=== PATIENT | male | born 1980 | race Caucasian/White ===

== ENCOUNTER → 2018-03-06 | Outpatient (CLI) | payer OTHER ==
--- NOTE | 2018-03-06 19:15 | RADIOLOGY IMAGING REPORT ---
FACILITY: [facility] [place] PATIENT NAME: Thony Jimenez : 1980 MR: [id number] V: [id number] EXAM DATE: ORDERING PHYSICIAN: JAVIER LITTLEJOHN TECHNOLOGIST: Location: [facility] - [place], [place] Patient: Thony Jimenez : 1980 Visit/Account:[id number] Date of Sevice: 03/06/2018 ABD SINGLE ORGAN/QUAD/FOLLOWUP INDICATION: Right groin pain. Lump in the groin. COMPARISON: None available FINDINGS: Ultrasound images of the right groin. No indication of hernia, mass or fluid collection. There are 3 prominent lymph nodes however they do show fatty hilum with blood flow and without suspic ious characteristics at this time. The largest lymph node measures 1.1 x 1.2 x 0.9 cm. Other lymph no rebecca have a smooth cortex without significant thickening or lobulations. IMPRESSION: Right groin shows no indication of hernia. There are 3 mildly prominent lymph nodes howev er did not show any suspicious characteristics at this time. Suggest clinical follow-up. If the lymph nodes enlarge clinically reevaluation with ultrasound. I called report to JAVIER LITTLEJOHN at 03/06/2018 7:10 PM. Report Dictated By: Phillip Jean at 03/06/2018 7:00 PM Report E-Signed By: Phillip Jean at 03/06/2018 7:10 PM WSN:[id number]
== END ==
LOC: US 17:34
PROVIDERS: ATTEND Nurse Practitioner Family
DX: R59.0 Localized enlarged lymph nodes (principal)
CPT/HCPCS: 76705